=== PATIENT | female | born 1965 | race Caucasian/White ===

== ENCOUNTER 2017-05-28 09:49 | Emergency (ER) | payer SELFPAY ==
[2017-05-28] MEDS ORDERED: KETOROLAC TROMETHAMINE 60 MG/2 ML VIAL IM ONE ×2 (10:29→10:34)
[2017-05-28] MEDS ORDERED: ORPHENADRINE CITRATE 30 MG/ML VIAL IM ONE (10:29)
[2017-05-28] MEDS ORDERED: ORPHENADRINE CITRATE 30 MG/ML VIAL ONE (10:34)
--- NOTE | 2017-05-28 11:36 | ERNOTE ---
Back Pain ER HPI Date of Service: 05/28/17 Time Seen by Provider: 05/28/17 10:21 Source: patient Exam Limitations: no limitations Immunizations: IMMUNIZATION HX Immunizations Up to Date Yes History of Influenza Vaccine No Allergies/Adverse Reactions: Allergies No Known Allergies Allergy (Unverified 05/28/17 10:15) Home Medications: HOME MEDICATIONS Cyclobenzaprine HCl [Flexeril] 10 mg PO TID PRN #30 tab 05/28/17 [Last Taken Unknown] Naproxen [Naprosyn] 500 mg PO BID PRN #60 tab 05/28/17 [Last Taken Unknown] Omeprazole Magnesium [Prilosec Otc] 20 mg PO DAILY 05/28/17 [Last Taken Unknown] Narrative: Pt. comes in with c/o B thigh numbness and tingling down both legs into her feet. Pt. denies any SOB, CP, NVD, fever, recent illness or incontinence of bowel or bladder. Pt. does state that she has some chronic swelling of both of her legs. Pt. denies any alleviating factors, aggravating factors, or prehospital treatment. Review of Systems - Review of Systems Constitutional: Present: no symptoms reported. Absent: recent illness, fever, chills, weakness, fatigue, malaise EYE: Present: no symptoms reported ENT: Present: no symptoms reported Respiratory: Present: no symptoms reported. Absent: shortness of breath, cough , wheezing Cardiology: Present: edema - BLE chronic for pt.. Absent: chest pain, palpitations Gastrointestinal/Abdominal: Present: no symptoms reported. Absent: nausea, vomiting, diarrhea Genitourinary: Present: no symptoms reported. Absent: frequency, decreased urinary output Musculoskeletal: Present: back pain. Absent: joint pain Skin: Present: no symptoms reported. Absent: rash, change in color Neurological: Present: numbness, tingling. Absent: headache, dizziness/light- headedness All Other Systems: All systems neg except as marked - Patient's Past Medical History Patient History - Medical: Arthritis, GERD Patient History - Cardiac/Respiratory: Sleep Apnea Patient History - Cancer: No Hx of Cancer Patient History - Surgical Procedures: Patient History - Other: None - Family History Mother Family History - Medical: Diabetes Type 2 - Social History Living Situations: home Psych History: Hx of Depression Smoking Status: Current every day smoker Have you smoked in the past 12 months: Yes Alcohol Use: none Drug Use: none - Immunizations Immunizations Up to Date: Yes History of Influenza Vaccine: No Physical Exam - Physical Exam General Appearance: Present: wd/wn, alert, no apparent distress Eye Exam: Normal inspection: bilateral, PERRL: bilateral, EOMI: bilateral Ears, Nose, Throat: Present: normal ENT inspection, normal pharynx Neck: Present: normal inspection, nontender. 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 Absent: pallor, skin rash ED Progress - Vital Signs Patient's Vital Signs:: I have reviewed the patient's vital signs. Vital Signs: Vital Signs 05/28/17 05/28/17 10:10 10:46 Temperature 36.8 C Pulse Rate 93 89 Respiratory 16 Rate Blood Pressure 164/101 160/94 O2 Sat by Pulse 100 96 Oximetry - X-Ray X-Ray #1 X-Ray: lumbosacral Interpretation: Reviewed by me X-ray Comments: L4-L5 disc space narrowing and facet joint arthropathy. - Progress/Reassessment Chief Complaint: Back Pain Departure Clinical Impression: Arthropathy of facet joint, DDD (degenerative disc disease), lumbosacral - Departure Disposition: Home self-care Condition: Good Instructions: Degenerative Disk Disease Additional Instructions: Please follow up with primary provider in 2-3 days. Prescriptions: Cyclobenzaprine HCl [Flexeril] 10 mg PO TID PRN #30 tab PRN Reason: MUSCLE SPASMS Naproxen [Naprosyn] 500 mg PO BID PRN #60 tab PRN Reason: Pain
[2017-05-28 15:36] VITALS: BP 149/84
== END 2017-05-28 11:53 | disposition home or self-care (01) ==
LOC: ER 09:49
DX: M12.88 Other specific arthropathies, not elsewhere classified, other specified site (principal); M51.37 Other intervertebral disc degeneration, lumbosacral region; F17.200 Nicotine dependence, unspecified, uncomplicated